=== PATIENT | female | born 1995 | race Two or more races ===

== ENCOUNTER 2025-06-24 11:34 | Emergency (ER) | payer OTHER ==
[~2025-06-24] VITALS: Ht 165.1 cm; Wt 79.4 kg
[2025-06-24] MEDS ORDERED: ONDANSETRON HCL/PF 4 MG/2 ML VIAL ONE (12:20)
[2025-06-24] MEDS: IV NS 0.9% 1,000 ML BAG IV ONE (12:23)
[2025-06-24] MEDS: ONDANSETRON HCL/PF 4 MG/2 ML VIAL IVP ONE (12:24)
[2025-06-24 12:25] LABS: PLATELET COUNT (AUTO) 263 K/uL (150-450); RED BLOOD CELL COUNT(AUTO) 4.51 MIL/uL (4.0-5.2); RED CELL DISTRIBUTION WIDTH 13.0 % (11.5-15.0); WHITE BLOOD COUNT (AUTO) 9.6 K/uL (4.3-11.0)
[2025-06-24 12:27] LABS: CALCIUM, SERUM 8.7 mg/dL (8.5-10.1); CREATININE 1.0 mg/dL (0.6-1.3); SODIUM SERUM 139.0 mmol/L (136-145); UREA NITROGEN, BLOOD 11.0 mg/dL (7-18)
[2025-06-24 12:33] LABS: ASPARTATE AMINOTRANSFERASE 20.0 U/L (15-37); TOTAL PROTEIN, SERUM 7.5 g/dL (6.4-8.2)
[2025-06-24] MEDS ORDERED: DICY10CA37 PO (13:02)
[2025-06-24] MEDS ORDERED: ONDA4TAB11 PO (13:02)
[2025-06-24 13:17] VITALS: BP 115/70; TEMP 98.7; O2SAT 99
== END 2025-06-24 13:18 | disposition home or self-care (01) ==
LOC: ER 11:40
DX: R11.2 Nausea with vomiting, unspecified (principal); R19.7 Diarrhea, unspecified; R10.2 Pelvic and perineal pain
CPT/HCPCS: 99283; 96374; 96361; 85025; 80048; 83690; 80076; 36415; 84702; J2405; J7030